=== PATIENT | male | born 1990 | race African-American/Black ===

== ENCOUNTER 2025-04-07 12:41 | Emergency (ER) | payer SELFPAY ==
[~2025-04-07] VITALS: Ht 182.9 cm; Wt 90.7 kg
[2025-04-07] MEDS ORDERED: METOCLOPRAMIDE HCL 10 MG/2 ML VIAL IV ONE (13:30)
[2025-04-07 13:33] LABS: PLATELET COUNT (AUTO) 289 K/uL (150-450); RED BLOOD CELL COUNT(AUTO) 5.05 MIL/uL (4.5-6.0); RED CELL DISTRIBUTION WIDTH 13.2 % (11.5-15.0); WHITE BLOOD COUNT (AUTO) 11.1 K/uL (4.3-11.0)
[2025-04-07] MEDS ORDERED: HALOPERIDOL LACTATE INJ 5 MG/ML VIAL ONE (13:37)
[2025-04-07] MEDS: HALOPERIDOL LACTATE INJ 5 MG/ML VIAL IV ONE (13:42)
[2025-04-07] MEDS: IV NS 0.9% 1,000 ML BAG IV ONE (13:42)
[2025-04-07 13:46] LABS: CALCIUM, SERUM 9.6 mg/dL (8.5-10.1); CREATININE 1.1 mg/dL (0.6-1.3); SODIUM SERUM 139.0 mmol/L (136-145); UREA NITROGEN, BLOOD 18.0 mg/dL (7-18)
[2025-04-07 13:51] LABS: ASPARTATE AMINOTRANSFERASE 31.0 U/L (15-37); TOTAL PROTEIN, SERUM 8.8 g/dL (6.4-8.2)
[2025-04-07] MEDS ORDERED: ONDA4TAB5 PO (15:25)
[2025-04-07] MEDS ORDERED: IBUP-1490 PO (15:25)
[2025-04-07] MEDS ORDERED: MAG355OR18 PO (15:26)
[2025-04-07] MEDS ORDERED: FAMO20TA8 PO (15:26)
[2025-04-07] MEDS ORDERED: KETOROLAC TROMETHAMINE 15 MG/ML VIAL ONE (15:27)
[2025-04-07] MEDS: KETOROLAC TROMETHAMINE 15 MG/ML VIAL IV ONE (15:29)
[2025-04-07 15:55] VITALS: BP 127/70; TEMP 98.5; O2SAT 100
[2025-04-07] MEDS ORDERED: IV NS 0.9% 1,000 ML BAG IV ONE (16:00)
== END 2025-04-07 15:57 | disposition home or self-care (01) ==
LOC: ER 12:50
DX: R11.2 Nausea with vomiting, unspecified (principal); R10.9 Unspecified abdominal pain; F12.90 Cannabis use, unspecified, uncomplicated; Z88.0 Allergy status to penicillin
CPT/HCPCS: 99284; 96374; 96361; 96375; 93005; 85025; 80048; 83690; 80076; 36415; J1885; J1630; J7030